=== PATIENT | female | born 1930 | race Caucasian/White ===

== ENCOUNTER 2017-02-02 11:42 | Inpatient (IN) | payer OTHER ==
[~2017-02-02] VITALS: Ht 152.4 cm; Wt 47.0 kg
[~2017-02-02 11:42] MED LIST: ALLO100T PO; BENZ-51 PO; BUME1TAB17 PO; HYD25 PO; HYDR25TA84 PO; LEVO500 PO; LEVO75 PO; MEGE40 PO; MINO2.5 PO; NIFE30TA5 PO; OMEP20 PO; TEMA15CA PO; VITAD1000 PO
[2017-02-02] MEDS ORDERED: NIFE30TA26 PO (12:03)
[2017-02-02] MEDS ORDERED: ATOR20TA86 PO (12:03)
[2017-02-02] MEDS ORDERED: ESTR-95 PO (12:03)
[2017-02-02] MEDS ORDERED: HYDR-4069 PO (12:03)
[2017-02-02] MEDS ORDERED: ROPI2 PO (12:03)
[2017-02-02] MEDS ORDERED: MECL-111 PO (12:03)
[2017-02-02] MEDS ORDERED: CALC25 PO (12:03)
[2017-02-02 13:22] LABS: BASOPHILS % (AUTO) 0.4 % (0.0-2.0); EOSINOPHILS % (AUTO) 0.5 % (1.0-6.0); HEMATOCRIT 32.8 % (36-46); HEMOGLOBIN 10.9 g/dL (12.0-16.0); LYMPHOCYTES # (AUTO) 1.6 K/uL (1.0-4.8); LYMPHOCYTES % (AUTO) 27.7 % (22.0-44.0); MEAN CORPUSCULAR HEMOGLOBIN 31.8 pg (26.0-34.0); MEAN CORPUSCULAR HGB CONC 33.2 G/dL (31.0-37.0); MEAN CORPUSCULAR VOLUME 96 fL (80-100); MONOCYTES # (AUTO) 0.6 K/uL (0.1-1.0); MONOCYTES % (AUTO) 9.8 % (2.0-9.0); NEUTROPHILS # (AUTO) 3.5 K/uL (1.8-7.7); NEUTROPHILS % (AUTO) 61.6 % (40.0-70.0); PLATELET COUNT (AUTO) 219 K/uL (150-450); RED BLOOD CELL COUNT(AUTO) 3.43 MIL/uL (4.00-5.20); RED CELL DISTRIBUTION WIDTH 14.9 % (11.5-14.5)
[2017-02-02 13:29] LABS: CALCIUM, TOTAL 8.3 mg/dL (8.8-10.5); CREATININE 2.07 mg/dL (0.60-1.30); POTASSIUM 4.3 mmol/L (3.5-5.1)
[2017-02-02 13:35] LABS: ALBUMIN 3.4 g/dL (3.4-5.0); BILIRUBIN,TOTAL 0.2 mg/dL (0.1-1.0); TOTAL PROTEIN, SERUM 7.2 g/dL (6.4-8.2)
[2017-02-02] MEDS ORDERED: FUROSEMIDE 40 MG/4 ML VIAL IVP ONE (14:30)
[2017-02-02] MEDS ORDERED: ACETAMINOPHEN 325 MG TABLET PO PRN (15:30)
[2017-02-02] MEDS ORDERED: BISACODYL 10 MG RECTAL RECTAL SUPPOSITORY PR PRN (15:30)
[2017-02-02] MEDS ORDERED: ALBUTEROL SULFATE 2.5 MG/0.5 ML NEB SOLUTION NEB PRN (15:30)
[2017-02-02 15:42] LABS: INFLUENZA TYPE A NEGATIVE FOR TYPE A (NEGATIVE); INFLUENZA TYPE B NEGATIVE FOR TYPE B (NEGATIVE)
[2017-02-02 15:54] LABS: APPEARANCE,URINE CLEAR (CLEAR); BILIRUBIN,URINE NEGATIVE (NEGATIVE); GLUCOSE, URINE (UA) NEGATIVE (NEGATIVE); KETONES,URINE NEGATIVE (NEGATIVE); LEUKOCYTE ESTERASE ,URINE NEGATIVE (NEGATIVE); NITRATE,URINE NEGATIVE (NEGATIVE); OCCULT BLOOD,URINE NEGATIVE (NEGATIVE); PROTEIN,URINE NEGATIVE (NEGATIVE); UROBILINOGEN,URINE 0.2 mg/dL (<=1.0)
[2017-02-02 17:41] VITALS: BP 141/74
[2017-02-02] MEDS: ASPIRIN 81 MG CHEWABLE TABLET PO SCH (18:14)
[2017-02-02 18:38] LABS: THYROID STIMULATING HORMONE 0.8 uIU/mL (0.36-3.74)
[2017-02-02 19:33] VITALS: BP 138/56
[2017-02-02] MEDS: HEPARIN SODIUM,PORCINE 5,000 UNITS/ML VIAL SQ SCH (20:02)
[2017-02-02] MEDS: DOCUSATE SODIUM 100 MG CAPSULE PO SCH (20:02)
[2017-02-02] MEDS ORDERED: ATORVASTATIN CALCIUM 20 MG TABLET PO SCH (21:00)
[2017-02-02] MEDS ORDERED: 0.9% SODIUM CHLORIDE 5 ML NEB SOLUTION NEB ONE (23:06)
[2017-02-02] MEDS: GuaiFENesin/CODEINE [SUGAR FREE] 200-20MG/10 ML SYRUP UDCUP PO PRN (23:24)
[2017-02-03 00:09] VITALS: BP 111/55
[2017-02-03 04:56] VITALS: BP 134/61
[2017-02-03] MEDS: GuaiFENesin/CODEINE [SUGAR FREE] 200-20MG/10 ML SYRUP UDCUP PO PRN ×2 (06:22→13:03)
[2017-02-03 07:37] VITALS: BP 133/55
[2017-02-03] MEDS: DOCUSATE SODIUM 100 MG CAPSULE PO SCH (08:33)
[2017-02-03] MEDS: ASPIRIN 81 MG CHEWABLE TABLET PO SCH (08:33)
[2017-02-03] MEDS: HEPARIN SODIUM,PORCINE 5,000 UNITS/ML VIAL SQ SCH (08:34)
[2017-02-03] MEDS ORDERED: PANTOPRAZOLE SODIUM 40 MG DR TABLET PO SCH (09:00)
[2017-02-03 11:33] VITALS: BP 120/68
== END 2017-02-03 13:40 | disposition home or self-care (01) | DRG 683 ==
LOC: EMS 11:43 → 5S 16:37
PROVIDERS: ADMIT Internal Medicine; ATTEND Internal Medicine
DX: N17.9 Acute kidney failure, unspecified (principal); I13.0 Hypertensive heart and chronic kidney disease with heart failure and stage 1 through stage 4 chronic kidney disease, or unspecified chronic kidney disease; I45.10 Unspecified right bundle-branch block; I50.22 Chronic systolic (congestive) heart failure; R05 Cough; E78.00 Pure hypercholesterolemia, unspecified; J45.909 Unspecified asthma, uncomplicated; M10.9 Gout, unspecified; K21.9 Gastro-esophageal reflux disease without esophagitis; E55.9 Vitamin D deficiency, unspecified; M19.90 Unspecified osteoarthritis, unspecified site; N18.3 Chronic kidney disease, stage 3 (moderate); Z79.899 Other long term (current) drug therapy
CPT/HCPCS: 82306; 84443; 87804; 93005; 93306; 94640; 96374; 99285; J1644; J1940

== ENCOUNTER 2017-11-13 10:03 | Emergency (ER) | payer OTHER ==
[~2017-11-13] VITALS: Ht 149.9 cm; Wt 47.7 kg
[~2017-11-13 10:03] MED LIST changes: -ALLO100T PO; +ATOR20TA86 PO; -BENZ-51 PO; +CALC25 PO; -HYD25 PO; -HYDR25TA84 PO; -LEVO500 PO; -LEVO75 PO; -MEGE40 PO; -MINO2.5 PO; +NIFE30TA26 PO; -NIFE30TA5 PO; -TEMA15CA PO
[2017-11-13] MEDS ORDERED: LEVO75 PO (10:17)
[2017-11-13] MEDS ORDERED: SENN-175 PO (10:17)
[2017-11-13] MEDS ORDERED: CALC25 PO (10:17)
[2017-11-13] MEDS ORDERED: ROPI1TAB11 PO (10:17)
[2017-11-13] MEDS ORDERED: ATOR20TA86 PO (10:17)
[2017-11-13] MEDS ORDERED: PRED20 PO (10:17)
[2017-11-13] MEDS ORDERED: ALLO100T PO (10:17)
[2017-11-13] MEDS ORDERED: MINO2.5 PO (10:17)
[2017-11-13] MEDS ORDERED: BUME1TAB17 PO (10:17)
[2017-11-13] MEDS ORDERED: HYDR25TA84 PO (10:17)
[2017-11-13] MEDS ORDERED: NIFE30TA5 PO (10:17)
[2017-11-13] MEDS ORDERED: VITAD1000 PO (10:17)
[2017-11-13] MEDS ORDERED: TEMA15CA PO (10:17)
[2017-11-13] MEDS ORDERED: ROPI2 PO (11:55)
[2017-11-13] MEDS ORDERED: ACETAMINOPHEN 325 MG TABLET PO ONE (12:00)
[2017-11-13 12:10] LABS: BASOPHILS % (AUTO) 0.6 % (0.0-2.0); EOSINOPHILS % (AUTO) 2.1 % (1.0-6.0); HEMATOCRIT 32.8 % (36-46); HEMOGLOBIN 10.7 g/dL (12.0-16.0); LYMPHOCYTES # (AUTO) 2.5 K/uL (1.0-4.8); LYMPHOCYTES % (AUTO) 21.3 % (22.0-44.0); MEAN CORPUSCULAR HEMOGLOBIN 31.4 pg (26.0-34.0); MEAN CORPUSCULAR HGB CONC 32.6 G/dL (31.0-37.0); MEAN CORPUSCULAR VOLUME 96 fL (80-100); MONOCYTES # (AUTO) 0.8 K/uL (0.1-1.0); MONOCYTES % (AUTO) 6.9 % (2.0-9.0); NEUTROPHILS % (AUTO) 69.1 % (40.0-70.0); PLATELET COUNT (AUTO) 268 K/uL (150-450); RED BLOOD CELL COUNT(AUTO) 3.41 MIL/uL (4.00-5.20); RED CELL DISTRIBUTION WIDTH 15.4 % (11.5-14.5)
[2017-11-13 12:33] LABS: CREATININE 2.32 mg/dL (0.60-1.30); POTASSIUM 3.5 mmol/L (3.5-5.1)
[2017-11-13 12:45] LABS: ALBUMIN 3.2 g/dL (3.4-5.0); BILIRUBIN,TOTAL 0.2 mg/dL (0.1-1.0); TOTAL PROTEIN, SERUM 6.1 g/dL (6.4-8.2)
[2017-11-13 12:55] VITALS: BP 136/46
== END 2017-11-13 13:32 | disposition home or self-care (01) ==
LOC: EMS 10:04
DX: R60.1 Generalized edema (principal); I13.10 Hypertensive heart and chronic kidney disease without heart failure, with stage 1 through stage 4 chronic kidney disease, or unspecified chronic kidney disease; I50.9 Heart failure, unspecified; N18.9 Chronic kidney disease, unspecified; J45.909 Unspecified asthma, uncomplicated; K21.9 Gastro-esophageal reflux disease without esophagitis; E78.00 Pure hypercholesterolemia, unspecified; Z79.899 Other long term (current) drug therapy
CPT/HCPCS: 93005; 99285

== ENCOUNTER 2019-04-29 09:35 | Inpatient (IN) | payer MEDICARE, OTHER ==
[~2019-04-29] VITALS: Ht 147.3 cm; Wt 52.4 kg
[~2019-04-29 09:35] MED LIST changes: +ALLO100T PO; -BUME1TAB17 PO; +BUME1TAB34 PO; +CHOL100018 PO; +HYDR25TA84 PO; +LEVO75 PO; +MINO2.5 PO; -NIFE30TA26 PO; +NIFE30TA5 PO; +PRED20 PO; +ROPI2 PO; +SENN-176 PO; +TEMA15CA PO; -VITAD1000 PO
[2019-04-29 11:44] LABS: BASOPHILS % (AUTO) 1.3 % (0.0-2.0); EOSINOPHILS % (AUTO) 5.3 % (1.0-6.0); HEMOGLOBIN 10.6 g/dL (12.0-16.0); LYMPHOCYTES # (AUTO) 1.3 K/uL (1.0-4.8); LYMPHOCYTES % (AUTO) 28.4 % (22.0-44.0); MEAN CORPUSCULAR HGB CONC 32.2 G/dL (31.0-37.0); MEAN CORPUSCULAR VOLUME 96 fL (80-100); MONOCYTES # (AUTO) 0.4 K/uL (0.1-1.0); MONOCYTES % (AUTO) 8.7 % (2.0-9.0); NEUTROPHILS # (AUTO) 2.6 K/uL (1.8-7.7); NEUTROPHILS % (AUTO) 56.3 % (40.0-70.0); PLATELET COUNT (AUTO) 287 K/uL (150-450); RED BLOOD CELL COUNT(AUTO) 3.43 MIL/uL (4.00-5.20); RED CELL DISTRIBUTION WIDTH 16.8 % (11.5-14.5)
[2019-04-29] MEDS ORDERED: CHOL100018 PO (11:45)
[2019-04-29] MEDS ORDERED: PANT40TA25 PO (11:45)
[2019-04-29] MEDS ORDERED: AZITHROMYCIN 500 MG/NS 250 ML IV ONE (11:45)
[2019-04-29] MEDS ORDERED: CefTRIAXone 1 GM/DEXTROSE 50 ML IV ONE (11:45)
[2019-04-29] MEDS ORDERED: LEVO100 PO (11:46)
[2019-04-29 11:55] LABS: CALCIUM, TOTAL 8.9 mg/dL (8.8-10.5); CREATININE 2.26 mg/dL (0.60-1.30); POTASSIUM 4.2 mmol/L (3.5-5.1)
[2019-04-29 12:00] LABS: ALBUMIN 3.7 g/dL (3.4-5.0); BILIRUBIN,TOTAL 0.3 mg/dL (0.1-1.0); TOTAL PROTEIN, SERUM 7.3 g/dL (6.4-8.2)
[2019-04-29 12:23] LABS: INFLUENZA TYPE A NEGATIVE FOR TYPE A (NEGATIVE); INFLUENZA TYPE B NEGATIVE FOR TYPE B (NEGATIVE)
[2019-04-29] MEDS ORDERED: BISACODYL 10 MG RECTAL RECTAL SUPPOSITORY PR PRN (12:30)
[2019-04-29] MEDS: DOCUSATE SODIUM 100 MG CAPSULE PO SCH (21:02)
[2019-04-29] MEDS: HEPARIN SODIUM,PORCINE 5,000 UNITS/ML VIAL SQ SCH (21:02)
[2019-04-29] MEDS: IPRATROPIUM BROMIDE 0.5 MG/2.5 ML NEB SOLUTION NEB PRN (23:13)
[2019-04-29] MEDS: ALBUTEROL SULFATE 2.5 MG/0.5 ML NEB SOLUTION NEB PRN (23:13)
[2019-04-30 00:10] VITALS: BP 133/70
[2019-04-30 04:02] VITALS: BP 153/88
[2019-04-30 08:11] VITALS: BP 176/66
[2019-04-30 08:57] LABS: CALCIUM, TOTAL 8.4 mg/dL (8.8-10.5); CREATININE 1.99 mg/dL (0.60-1.30); POTASSIUM 4.3 mmol/L (3.5-5.1)
[2019-04-30] MEDS: DOCUSATE SODIUM 100 MG CAPSULE PO SCH ×2 (10:38→22:01)
[2019-04-30] MEDS: HEPARIN SODIUM,PORCINE 5,000 UNITS/ML VIAL SQ SCH ×2 (10:38→22:01)
[2019-04-30] MEDS: FAMOTIDINE 20 MG TABLET PO SCH (10:38)
[2019-04-30] MEDS: ASPIRIN 81 MG CHEWABLE TABLET PO SCH (10:39)
[2019-04-30 11:04] VITALS: BP 146/69
[2019-04-30] MEDS: ALBUTEROL SULFATE 2.5 MG/0.5 ML NEB SOLUTION NEB PRN (11:32)
[2019-04-30] MEDS: IPRATROPIUM BROMIDE 0.5 MG/2.5 ML NEB SOLUTION NEB PRN (11:32)
[2019-04-30] MEDS: AZITHROMYCIN 500 MG/NS 250 ML IV SCH (12:48)
[2019-04-30] MEDS ORDERED: SODIUM CHLORIDE 0.9% 250 ML IV ONE (12:49)
[2019-04-30 15:42] VITALS: BP 154/69
[2019-04-30 19:46] VITALS: BP 173/63
[2019-04-30] MEDS: AmLODIPine BESYLATE 10 MG TABLET PO SCH (22:01)
[2019-04-30] MEDS: ACETAMINOPHEN 325 MG TABLET PO PRN (22:36)
[2019-05-01] VITALS: BP 115/75
[2019-05-01 04:13] VITALS: BP 144/77
[2019-05-01] MEDS: IPRATROPIUM BROMIDE 0.5 MG/2.5 ML NEB SOLUTION NEB PRN ×2 (09:34→19:19)
[2019-05-01] MEDS: ALBUTEROL SULFATE 2.5 MG/0.5 ML NEB SOLUTION NEB PRN ×2 (09:34→19:19)
[2019-05-01] MEDS: FAMOTIDINE 20 MG TABLET PO SCH (10:01)
[2019-05-01] MEDS: AmLODIPine BESYLATE 10 MG TABLET PO SCH (10:01)
[2019-05-01] MEDS: ASPIRIN 81 MG CHEWABLE TABLET PO SCH (10:02)
[2019-05-01] MEDS: HEPARIN SODIUM,PORCINE 5,000 UNITS/ML VIAL SQ SCH ×2 (10:02→20:01)
[2019-05-01] MEDS: DOCUSATE SODIUM 100 MG CAPSULE PO SCH ×2 (10:02→20:01)
[2019-05-01] MEDS: FUROSEMIDE 20 MG TABLET PO SCH (11:42)
[2019-05-01] MEDS: AZITHROMYCIN 500 MG/NS 250 ML IV SCH (11:53)
[2019-05-01] MEDS: ACETAMINOPHEN 325 MG TABLET PO PRN (16:08)
[2019-05-01 17:12] VITALS: BP 149/67
[2019-05-01 22:22] VITALS: BP 147/65
[2019-05-02 00:46] VITALS: BP 158/63
[2019-05-02 05:37] VITALS: BP 154/59
[2019-05-02] MEDS: ACETAMINOPHEN 325 MG TABLET PO PRN ×2 (06:14→20:30)
[2019-05-02 07:50] VITALS: BP 152/69
[2019-05-02] MEDS: HEPARIN SODIUM,PORCINE 5,000 UNITS/ML VIAL SQ SCH ×2 (09:27→20:22)
[2019-05-02] MEDS: FAMOTIDINE 20 MG TABLET PO SCH (09:27)
[2019-05-02] MEDS: ASPIRIN 81 MG CHEWABLE TABLET PO SCH (09:28)
[2019-05-02] MEDS: AmLODIPine BESYLATE 10 MG TABLET PO SCH (09:28)
[2019-05-02] MEDS: DOCUSATE SODIUM 100 MG CAPSULE PO SCH ×2 (09:28→20:21)
[2019-05-02] MEDS: FUROSEMIDE 20 MG TABLET PO SCH ×2 (09:28→20:21)
[2019-05-02 10:34] LABS: BASOPHILS % (AUTO) 1.5 % (0.0-2.0); EOSINOPHILS % (AUTO) 1.8 % (1.0-6.0); HEMATOCRIT 27.9 % (36-46); LYMPHOCYTES # (AUTO) 1.3 K/uL (1.0-4.8); LYMPHOCYTES % (AUTO) 23.7 % (22.0-44.0); MEAN CORPUSCULAR HEMOGLOBIN 31.1 pg (26.0-34.0); MEAN CORPUSCULAR HGB CONC 32.1 G/dL (31.0-37.0); MEAN CORPUSCULAR VOLUME 97 fL (80-100); MONOCYTES # (AUTO) 0.4 K/uL (0.1-1.0); MONOCYTES % (AUTO) 8.3 % (2.0-9.0); NEUTROPHILS # (AUTO) 3.5 K/uL (1.8-7.7); NEUTROPHILS % (AUTO) 64.7 % (40.0-70.0); PLATELET COUNT (AUTO) 246 K/uL (150-450); RED BLOOD CELL COUNT(AUTO) 2.88 MIL/uL (4.00-5.20); RED CELL DISTRIBUTION WIDTH 16.9 % (11.5-14.5)
[2019-05-02 10:41] LABS: CALCIUM, TOTAL 8.6 mg/dL (8.8-10.5); CREATININE 1.87 mg/dL (0.60-1.30); POTASSIUM 4.8 mmol/L (3.5-5.1)
[2019-05-02] MEDS: AZITHROMYCIN 500 MG/NS 250 ML IV SCH (11:47)
[2019-05-02 12:36] LABS: APPEARANCE,URINE CLEAR (CLEAR); BILIRUBIN,URINE NEGATIVE (NEGATIVE); GLUCOSE, URINE (UA) NEGATIVE (NEGATIVE); KETONES,URINE NEGATIVE (NEGATIVE); LEUKOCYTE ESTERASE ,URINE NEGATIVE (NEGATIVE); NITRATE,URINE NEGATIVE (NEGATIVE); OCCULT BLOOD,URINE NEGATIVE (NEGATIVE); PH,URINE 5.5 (5.0-8.0); PROTEIN,URINE SEE CONFIRM (NEGATIVE); UROBILINOGEN,URINE 0.2 mg/dL (<=1.0)
[2019-05-02 12:43] LABS: SULFOSALICYLIC ACID,URINE Trace (Negative)
[2019-05-02 12:44] LABS: BACTERIA,URINE None Seen /HPF (None Seen); RBC,URINE None Seen /HPF (0-2); SQUAMOUS EPITHELIAL CELL,UR Few /LPF (None Seen); WBC,URINE 0-2 /HPF (0-5)
[2019-05-02 12:55] VITALS: BP 164/76
[2019-05-02 16:05] VITALS: BP 159/74
[2019-05-02 20:00] VITALS: BP 159/74
[2019-05-02] MEDS ORDERED: 0.9% SODIUM CHLORIDE 5 ML NEB SOLUTION NEB ONE (20:29)
[2019-05-02] MEDS: ALBUTEROL SULFATE 2.5 MG/0.5 ML NEB SOLUTION NEB PRN (20:34)
[2019-05-02] MEDS: IPRATROPIUM BROMIDE 0.5 MG/2.5 ML NEB SOLUTION NEB PRN (20:34)
[2019-05-03 00:25] VITALS: BP 144/74
[2019-05-03 04:45] VITALS: BP 145/69
[2019-05-03 08:59] VITALS: BP 160/73
[2019-05-03] MEDS: ASPIRIN 81 MG CHEWABLE TABLET PO SCH (09:08)
[2019-05-03] MEDS: FUROSEMIDE 20 MG TABLET PO SCH (09:10)
[2019-05-03] MEDS: DOCUSATE SODIUM 100 MG CAPSULE PO SCH (09:10)
[2019-05-03] MEDS: AmLODIPine BESYLATE 10 MG TABLET PO SCH (09:10)
[2019-05-03] MEDS: HEPARIN SODIUM,PORCINE 5,000 UNITS/ML VIAL SQ SCH (09:11)
[2019-05-03] MEDS: FAMOTIDINE 20 MG TABLET PO SCH (09:11)
[2019-05-03 11:58] VITALS: BP 147/72
[2019-05-03] MEDS: AZITHROMYCIN 500 MG/NS 250 ML IV SCH (12:15)
[2019-05-03] MEDS: IPRATROPIUM BROMIDE 0.5 MG/2.5 ML NEB SOLUTION NEB PRN (12:34)
[2019-05-03] MEDS: ALBUTEROL SULFATE 2.5 MG/0.5 ML NEB SOLUTION NEB PRN (12:34)
[2019-05-03 15:53] VITALS: BP 140/68
[2019-05-03 19:45] VITALS: BP 167/90
== END 2019-05-03 20:15 | disposition home or self-care (01) | DRG 193 ==
LOC: EMS 09:37 → 5N 18:37
PROVIDERS: ADMIT Internal Medicine; ATTEND Internal Medicine
DX: J18.9 Pneumonia, unspecified organism (principal); G92 Toxic encephalopathy; I13.0 Hypertensive heart and chronic kidney disease with heart failure and stage 1 through stage 4 chronic kidney disease, or unspecified chronic kidney disease; J44.9 Chronic obstructive pulmonary disease, unspecified; I50.9 Heart failure, unspecified; N18.3 Chronic kidney disease, stage 3 (moderate); I25.10 Atherosclerotic heart disease of native coronary artery without angina pectoris; J40 Bronchitis, not specified as acute or chronic; E78.00 Pure hypercholesterolemia, unspecified; N28.9 Disorder of kidney and ureter, unspecified
CPT/HCPCS: 83605; 87040; 87635; 87804; 93005; 94640; 96365; J0456; J0696; J1644; J7050